=== PATIENT | female | born 1985 | race Caucasian/White ===

== ENCOUNTER → 2018-06-06 | Outpatient (CLI) | payer OTHER | END | disposition home or self-care (01) | LOC: C.LABSPEC 17:33 | PROVIDERS: ATTEND Obstetrics & Gynecology | DX: Z34.01 Encounter for supervision of normal first pregnancy, first trimester (principal); Z3A.00 Weeks of gestation of pregnancy not specified ==

== ENCOUNTER → 2018-06-08 | Outpatient (CLI) | payer OTHER ==
[2018-06-08 14:50] LABS: HEMATOCRIT 37.6 % (37-47); HEMOGLOBIN 12.7 g/dL (12.0-16.0); MEAN CORPUSCULAR HEMOGLOBIN 30.8 pg (25-34); MEAN CORPUSCULAR HGB CONC 33.8 g/dl (32-36); MEAN PLATELET VOLUME 10.1 fL (7.4-10.4); PLATELET COUNT 164 K/uL (130-400); RED CELL DISTRIBUTION WIDTH CV 13.2 % (11.5-14.5); RED CELL DISTRIBUTION WIDTH SD 43.9 fL (36.4-46.3); WHITE BLOOD COUNT 6.67 K/uL (4.8-10.8)
== END | disposition home or self-care (01) ==
LOC: C.LAB1850 14:04
PROVIDERS: ATTEND Obstetrics & Gynecology
DX: O46.90 Antepartum hemorrhage, unspecified, unspecified trimester (principal); Z3A.00 Weeks of gestation of pregnancy not specified

== ENCOUNTER → 2018-06-15 | Outpatient (CLI) | payer OTHER | END | disposition home or self-care (01) | LOC: C.LAB1850 16:37 | PROVIDERS: ATTEND Obstetrics & Gynecology | DX: O03.9 Complete or unspecified spontaneous abortion without complication (principal); Z3A.00 Weeks of gestation of pregnancy not specified ==

== ENCOUNTER 2023-12-13 07:50 | Inpatient (IN) ==
[2023-12-13] MEDS ORDERED: LIDOCAINE 1% LOCAL 20 ML VIAL INFIL PRN (08:10)
--- NOTE | 2023-12-13 08:24 | Labor Progress Brief Note ---
Date of Service December 13, 2023 Subjective Balloon fell out at 11pm. No OB c/o. Assessment & Plan (1) Elderly multigravida, currently : Plan: Postdates IOL, will use pitocin, epidural on request. Admission and Anticipated Discharge Date Admission Date: December 13, 2023 Physical Exam Genitourinary: /-2 No ROM FHT Cat 1 [place] irregular / infrequent ctx Results & Data Vital Signs (Past 12 Hours) Vital Signs Pulse BP 12/13/23 07:59 78 96/61 L Coding Level of Care Code None Diagnoses Elderly multigravida, currently O09.529
[2023-12-13] MEDS: OXYTOCIN 30 UNITS/NSS 30 UNITS/500 ML BAG IV PRN (09:03)
[2023-12-13] MEDS: LACTATED RINGER'S 1,000 ML IV PRN (09:07)
[2023-12-13 09:51] LABS: Hematocrit (blood only) 36.9 % (37.0-47.0); Hemoglobin 12.3 g/dl (12.0-16.0); Mean Corpuscular Hemoglobin 33.2 pg (25.0-34.0); Mean Corpuscular Hgb Conc 33.3 g/dL (32.0-36.0); Mean Corpuscular Volume 99.7 fL (80.0-100.0); Mean Platelet Volume 9.9 fL (9.4-12.4); Platelet Count 146 K/uL (130-400); RDW Coefficient of Variation 14.1 % (11.5-14.5); RDW Standard Deviation 51.8 fL (36.4-46.3); White Blood Count 7.72 K/ul (4.8-10.8)
--- NOTE | 2023-12-13 13:47 | Labor Progress Brief Note ---
Date of Service December 13, 2023 Subjective Reason For Note: Routine Evaluation Assessment & Plan (1) resulting from in vitro fertilization: Plan: Carey is a 38-year-old G3, P0 at 40 weeks 5 days gestational age presents for induction of labor 1. Fetus: Category 1 tracing 2. Labor: Continue Pitocin per regular protocol. Artificial rupture membranes for clear fluid. Progressing well 3. GBS negative 4. Vitals within normal limit Trimester: third trimester Qualified Code(s): O09.813 - Supervision of resulting from assisted reproductive technology, third trimester (2) Elderly multigravida, currently : (3) Encounter for induction of labor: Admission and Anticipated Discharge Date Admission Date: December 13, 2023 Physical Exam Genitourinary: Manual OB Exam: + cervical dilation (4.5), + cervical effacement 80%, + station -2 and + amniotic fluid (AROM) clear OB Exam Monitor Tracing: + external FHT monitor used, + external uterine monitor used, + category I and + normal FHT variability; no early decelerations present, no late decelerations present and no variable decelerations Results & Data Vital Signs (Past 12 Hours) Vital Signs Temp Pulse Resp BP 12/13/23 12:49 65 104/65 12/13/23 12:00 20 12/13/23 12:00 20 12/13/23 11:30 16 12/13/23 11:30 36.7 C 16 12/13/23 11:11 70 104/61 12/13/23 10:13 64 102/58 L 12/13/23 09:19 79 111/66 12/13/23 08:31 36.6 C 78 16 96/61 L 12/13/23 08:05 16 12/13/23 08:05 36.6 C 16 12/13/23 07:59 78 96/61 L Coding Level of Care Code None Diagnoses resulting from in vitro fertilization in third trimester O09.813 Trimester: third trimester Elderly multigravida, currently O09.529 Encounter for induction of labor Z34.90
[2023-12-13] MEDS ORDERED: ePHEDrine sulfate 50 MG/ML AMP IV PRN (15:41)
[2023-12-13] MEDS ORDERED: LIDOCAINE 2% MPF LOCAL 5 ML VIAL EPI PRN (15:41)
[2023-12-13] MEDS ORDERED: ONDANSETRON INJ 2 MG/ML 2 ML VIAL IV PRN (15:41)
[2023-12-13] MEDS ORDERED: ROPIVACAINE 0.5% PF 5 MG/ML 20 ML VIAL EPI PRN (15:41)
[2023-12-13] MEDS ORDERED: diphenhydrAMINE 50 MG/ML VIAL IV PRN (15:41)
[2023-12-13] MEDS ORDERED: NALBUPHINE HCL 5 MG in SYRINGE 0 ML IV PRN (15:41)
[2023-12-13] MEDS ORDERED: fentaNYL citrate PF 100 MCG/2 ML VIAL EPI PRN (15:41)
[2023-12-13] MEDS ORDERED: NALOXONE HCL 1 MG in SODIUM CHLORIDE 0.9% 1,000 ML IV PRN (15:41)
[2023-12-13] MEDS ORDERED: NALOXONE HCL 0.4 MG/1 ML VIAL/CARP IV PRN (15:41)
[2023-12-13] MEDS ORDERED: BUPIVACAINE 0.25% PF 30 ML VIAL EPI PRN (15:41)
[2023-12-13] MEDS ORDERED: SODIUM CHLORIDE 0.9% PF INJ 10 ML VIAL EPI PRN (15:41)
[2023-12-13] MEDS: fentANYL 2 MCG/ML BUPIVacaine 0.125%-NSS 100ML BAG ONE (16:05)
[2023-12-13] MEDS: fentaNYL citrate PF 100 MCG/2 ML VIAL ONE (16:10)
[2023-12-13] MEDS: LIDOCAINE 2%/EPINEPHRINE 1:200,000 20 ML PF ONE (16:10)
[2023-12-13] MEDS: BUPIVACAINE 0.25% PF 30 ML VIAL ONE (16:10)
--- NOTE | 2023-12-13 16:15 | Anesthesiology Consultation ---
Date of Service December 13, 2023 Assessment & Plan ASA ASA2 Proposed Anesthesia Anesthesia Type: Labor Epidural Risk / Benefits Reviewed With: PT / POA / Parent / Guardian, Accepts Plan and Informed Consent Obtained History Height/Weight Height: 5 ft 2.2 in Weight: 70.76 kg Allergies Allergy/AdvReac Type Severity Reaction Status Date / Time No Known Drug Allergies Allergy Unknown Verified 12/12/23 19:30 Medications Home Medications Medication Instructions Recorded Confirmed Last Taken hvffazpa-[id number]-[id number] 1 tab PO DAILY 06/23/23 12/13/23 12/12/23 20:00 Active Medications Generic Name Dose Route Start Last Admin Trade Name Freq PRN Reason Stop Dose Admin Lactated Ringer's 1,000 mls @ 125 mls/hr 12/13/23 08:10 12/13/23 15:27 Lr IV 12/15/23 08:09 999 mls/hr .Q8H PRN Administration L&D Protocol Protocol Oxytocin 30 units in 500 mls @ 16 mls/hr 12/13/23 08:51 12/13/23 13:15 Pitocin 30 Units/Nss IV 12/15/23 08:50 0.96 units/hr .Q24H PRN 16 mls/hr Labor Induction/Augmentation Titration Protocol 0.96 UNITS/HR Past Medical History Medical History Spontaneous 2017 and 2018 Unintentional weight loss pt states she has lost 26lbs since December 2019 Abdominal bloating Migraine Breast cyst Exercise / Class Metabolic Activity II 4-5 Yardwork/Stairs/Walk up hill Past Family History Family History Grandmother (Maternal) Multiple gestation Diabetes Father Hypertension Aunt Breast cancer Family hx colonic polyps Lung cancer Mother ALS (amyotrophic lateral sclerosis) Depression Other Hepatitis No family history of adverse response to anesthesia Denies family history of Ovarian cancer Prostate cancer Myocardial infarction Colorectal cancer Past Surgical History Surgical History History of colonoscopy History of open reduction and internal fixation (ORIF) procedure right ankle--hardware removed S/P wisdom tooth extraction Past Anesthesia History No Hx of Anesthesia Complications and No Family Hx of Anesthesia Complications History of PONV No Hx of PONV and No Hx of Motion Sickness Social History Smoking Status: Never smoker Do You Dip or Chew Tobacco: No Hx Alcohol Use: No Hx Substance Use: No substance use type: does not use Review of Systems denies fever/cough/ colds/ chest pain/ SOB/ IVÁN denies IVÁN Physical Exam Vital Signs Last Vital Signs Temp 36.7 C 12/13/23 11:30 Pulse 66 12/13/23 16:12 Resp 20 12/13/23 12:00 BP 121/60 12/13/23 16:12 Pulse Ox 99 12/13/23 16:09 ENMT Mouth: no TMJ abnormality and no dentition abnormality Thyromental Distance: > or= 3.5 Finger Breadths Mallampati Class: II Neck neck extension not limited Respiratory normal respiratory effort; no respiratory distress Auscultation: lungs clear to auscultation bilaterally Cardiovascular Rate/Rhythm: regular rate and regular rhythm Neurologic moves all extremities Psychiatric Orientation: alert and oriented x 3 Testing Laboratory Results 12/13/23 09:14
[2023-12-13] MEDS: SODIUM CHLORIDE 0.9% PF INJ 10 ML VIAL EPI STA (16:18)
[2023-12-13] MEDS: ePHEDrine sulfate 50 MG/ML AMP ONE (16:40)
[2023-12-13] MEDS: SODIUM CHLORIDE 0.9% PF INJ 10 ML VIAL ONE (16:40)
--- NOTE | 2023-12-13 19:59 | Labor Progress Brief Note ---
Date of Service December 13, 2023 Subjective Reason For Note: Routine Evaluation Assessment & Plan (1) resulting from in vitro fertilization: Plan: Carey is a 38-year-old G3, P0 at 40 weeks 5 days gestational age presents for induction of labor 1. Fetus: Category 1 tracing 2. Labor: Progressing adequately. Continue Pitocin per regular protocol. Artificial rupture membranes for clear fluid. 3. GBS negative 4. Vitals within normal limit Trimester: third trimester Qualified Code(s): O09.813 - Superv ision of resulting from assisted reproductive technology, third trimester (2) Elderly multigravida, currently : (3) Encounter for induction of labor: Admission and Anticipated Discharge Date Admission Date: December 13, 2023 Physical Exam Genitourinary: Manual OB Exam: + cervical dilation 6 cm, + cervical effacement 90%, + station -1 and + amniotic fluid clear OB Exam Monitor Tracing: + external FHT monitor used, + external uterine monitor used, + category I and + normal FHT variability; no early decelerations present, no late decelerations present and no variable decelerations Results & Data Vital Signs (Past 12 Hours) Vital Signs Temp Pulse Resp BP Pulse Ox 12/13/23 19:54 73 100 12/13/23 19:49 71 100 12/13/23 19:48 81 117/72 12/13/23 19:44 69 100 12/13/23 19:39 73 100 12/13/23 19:36 69 92 12/13/23 19:34 69 100 12/13/23 19:29 75 100 12/13/23 19:25 72 90 12/13/23 19:24 63 100 12/13/23 19:19 64 100 12/13/23 19:16 36.4 C L 63 18 104/51 L 12/13/23 19:14 67 100 12/13/23 19:09 57 L 100 12/13/23 19:04 69 96 12/13/23 18:59 75 100 12/13/23 18:54 100 12/13/23 18:54 70 12/13/23 18:54 71 91 12/13/23 18:49 66 98 12/13/23 18:44 64 100 12/13/23 18:40 57 L 92 12/13/23 18:39 54 L 100 12/13/23 18:34 72 99 12/13/23 18:29 67 100 12/13/23 18:24 60 100 12/13/23 18:19 100 12/13/23 18:19 61 12/13/23 18:19 56 L 96/57 L 12/13/23 18:14 60 100 12/13/23 18:09 61 100 12/13/23 18:06 57 L 102/62 12/13/23 18:04 69 100 12/13/23 17:59 75 100 12/13/23 17:54 61 100 12/13/23 17:49 83 100 12/13/23 17:48 86 89/57 L 12/13/23 17:44 60 98 12/13/23 17:39 61 99 12/13/23 17:34 63 89/58 L 99 12/13/23 17:29 74 99 12/13/23 17:24 57 L 98 12/13/23 17:19 98 12/13/23 17:19 63 12/13/23 17:19 60 92/56 L 12/13/23 17:14 60 100 12/13/23 17:10 16 12/13/23 17:10 36.4 C L 16 12/13/23 17:09 65 99 12/13/23 17:04 99 12/13/23 17:04 59 L 12/13/23 17:04 59 L 108/61 12/13/23 16:59 59 L 99 12/13/23 16:54 60 98 12/13/23 16:49 99 12/13/23 16:49 64 12/13/23 16:49 63 115/77 12/13/23 16:44 64 99 12/13/23 16:39 66 99 12/13/23 16:34 95 12/13/23 16:34 67 12/13/23 16:34 64 107/64 12/13/23 16:29 66 99 12/13/23 16:24 68 98 12/13/23 16:19 76 98 12/13/23 16:17 67 131/72 12/13/23 16:14 69 115/56 L 98 12/13/23 16:12 66 121/60 12/13/23 16:10 65 125/63 12/13/23 16:09 67 99 12/13/23 16:08 61 124/61 12/13/23 16:06 60 123/59 L 12/13/23 16:04 100 12/13/23 16:04 64 12/13/23 16:04 62 132/68 12/13/23 16:00 78 112/73 12/13/23 15:59 68 115/71 100 12/13/23 15:55 72 125/76 12/13/23 15:54 81 100 12/13/23 15:49 89 95 12/13/23 15:44 77 98 12/13/23 15:39 72 97 12/13/23 15:38 67 129/62 12/13/23 15:23 62 115/74 12/13/23 12:49 65 104/65 12/13/23 12:00 20 12/13/23 12:00 20 12/13/23 11:30 16 12/13/23 11:30 36.7 C 16 12/13/23 11:11 70 104/61 12/13/23 10:13 64 102/58 L 12/13/23 09:19 79 111/66 12/13/23 08:31 36.6 C 78 16 96/61 L 12/13/23 08:05 16 12/13/23 08:05 36.6 C 16 12/13/23 07:59 78 96/61 L Coding Level of Care Code None Diagnoses resulting from in vitro fertilization in third trimester O09.813 Trimester: third trimester Elderly multigravida, currently O09.529 Encounter for induction of labor Z34.90
[2023-12-13] MEDS: fentANYL 2 MCG/ML BUPIVacaine 0.125%-NSS 100ML BAG EPI PRN (22:38)
[2023-12-14] MEDS: OXYTOCIN 30 UNITS/NSS 30 UNITS/500 ML BAG IV PRN (04:41)
[2023-12-14] MEDS ORDERED: ACETAMINOPHEN 325 MG TAB PO PRN (04:53)
[2023-12-14] MEDS ORDERED: OXYTOCIN 30 UNITS/NSS 30 UNITS/500 ML BAG IV PRN (04:53)
[2023-12-14] MEDS ORDERED: HYDROCORTISONE ACETATE 25 MG SUPP PR PRN (04:53)
--- NOTE | 2023-12-14 05:00 | Anesthesia Procedure Note ---
Date of Service December 14, 2023 Anesthesia Post Epidural Note Vital Signs Vital Signs: Temp Pulse Resp BP Pulse Ox 36.8 C 102 H 18 113/63 92 12/14/23 03:25 12/14/23 04:48 12/14/23 03:25 12/14/23 04:48 12/14/23 04:19 Notes Mental Status: alert / awake / arousable and participated in evaluation Nausea / Vomiting: adequately controlled Pain: adequately controlled Airway Patency, RR, SpO2: stable & adequate BP & HR: stable & adequate Hydration State: stable & adequate Neuraxial Anesthesia: was administered and sensory block resolved Anesthetic Complications: no major complications apparent and Pt Satisfied with anesthetic care Epidural: Removed without complications and With tip intact
[2023-12-14] MEDS: BENZOCAINE 20% SPRY 85 APPLN/85 GM CAN EXT PRN (05:22)
[2023-12-14] MEDS: IBUPROFEN 600 MG TAB PO PRN (05:22)
[2023-12-14] MEDS: DIPHTHER/TETAN/PERTUS Vaccine (Tdap, Adol/Adult) 0.5mL IM ONE (05:22)
--- NOTE | 2023-12-14 08:04 | Delivery Summary ---
Vaginal Delivery Summary Date of Service December 14, 2023 Vaginal Delivery Summary and 2nd Degree LAC Patient progressed to 10 cm dilated 100% effaced +2 station pushed over intact perineum with epidural anesthesia and delivered a viable with weight and Apgars pending. Head of the delivered in direct OA position and body and shoulders quickly followed. was noted to be vigorous soon after delivery and a 3 minute delayed cord clamping was initiated. Cord was then double clamped and cut. remained on maternal abdomen. Cord blood obtained. Attention was turned to deliver the placenta which delivered intact three-vessel cord gentle cord traction. On inspection of perineum vagina and cervix there is noted to be a second-degree perineal laceration which was repaired with 3-0 Vicryl in the traditional crown stitch. There is also noted to be a periurethral laceration laceration which was repaired with 3-0 Vicryl continuous running stitch. Needle sponge and instrument counts were correct at the completion of the case. Estimated blood loss of 300 mL noted. No complications with delivery. [facility] Vaginal Delivery Charge Delivery Type Details: and 2nd Degree LAC
[2023-12-14] MEDS: DOCUSATE SODIUM 100 MG CAP PO SCH (08:43)
[2023-12-14] MEDS: PRENATAL VITAMIN 1 TAB PO SCH (08:43)
[2023-12-14] MEDS: FERROUS SULFATE 325 MG TAB PO SCH (08:43)
--- NOTE | 2023-12-15 06:53 | Obstetrical Progress Note ---
Date of Service December 15, 2023 Assessment & Plan (1) (normal spontaneous vaginal delivery): Plan: Doing well encourage ambulation anticipate dc tomorrow Admission and Anticipated Discharge Date Admission Date: December 13, 2023 Supervising Physician Co-Signing Physician Notes Resident Physician Supervision Note: I was present with [Name of resident] during the history and exam. I discussed the case with the resident and agree with the findings and plan as documented in the note. Any exceptions or clarifications are listed here: [None] Documented By: Jennifer Kwan MD, FACOG Subjective 38 yo post day1 s/p Ambulation: ambulating normally Voiding: no voiding problems Passing Gas:: Yes Diet Tolerance:: regular diet Lochia:: Small Feeding Type:: bottle feeding Current Pain Level: minimal Resting comfortably this AM in NAD. Denies HUIZAR, CP, SOB, N/V/D, LE pain/swelling. Review of Systems Review of Systems: reviewed, per HPI Physical Exam Physical Exam: General: patient resting comfortably, NAD, non-toxic in appearance, answers questions appropriately. Skin: warm, dry, intact HEENT: NC/AT, anicteric sclera, conjunctiva without injection, moist mucus membranes. Heart: +S1/S2, regular, no m/r/g Lungs: equal air entry bilaterally, no rales/rhonchi/wheezes Abd: +BS, soft, NT/ND, uterine fundus firm at umbilicus Ext: warm, no clubbing/cyanosis or edema, Yin's neg. Neuro: nonfocal, speech intact, no facial droop, moving all extremities on command. Results & Data Vital Signs (Past 12 Hours) Vital Signs Temp Pulse Pulse Resp BP Pulse Ox O2 Del Method 12/15/23 04:30 36.5 C 69 18 105/65 12/14/23 23:50 36.5 C 80 18 100/64 12/14/23 19:30 36.6 C 83 20 118/75 100 Room Air Resident Activity Tracking Resident Involvement: Resident Care Provided Care Provided: Adult Hospital Medicine
[2023-12-15] MEDS: fentaNYL citrate PF 100 MCG/2 ML VIAL EPI STA (07:58)
[2023-12-15] MEDS: LIDOCAINE 2%/EPINEPHRINE 1:200,000 20 ML PF EPI STA (07:58)
[2023-12-15] MEDS: BUPIVACAINE 0.25% PF 30 ML VIAL EPI STA (07:58)
[2023-12-15] MEDS: bisacodyL 5 MG TABEC PO SCH (21:13)
[2023-12-16] MEDS ORDERED: bisacodyL 10 MG SUPP PR PRN
--- NOTE | 2023-12-16 06:11 | Obstetrical Progress Note ---
Date of Service December 16, 2023 Assessment & Plan (1) (normal spontaneous vaginal delivery): Plan: Doing well encourage ambulation dc today Admission and Anticipated Discharge Date Admission Date: December 13, 2023 Supervising Physician Co-Signing Physician Notes Resident Physician Supervision Note: I interviewed and examined the patient. Discussed with Dr. Fleming and agree with findings and plan as documented in the note. Any exceptions or clarifications are listed here: PPD#2 doing well. DC home. Instructions reviewed. Followup office 6w. Documented By: Claudia Camacho DO Subjective 38 yo post day 2 s/p Ambulation: ambulating normally Voiding: no voiding problems Passing Gas:: Yes Diet Tolerance:: regular diet Lochia:: Small Feeding Type:: bottle feeding Current Pain Level: minimal Resting comfortably this AM in NAD. Denies HUIZAR, CP, SOB, N/V/D, LE pain/swelling. Review of Systems Review of Systems: reviewed, per HPI Physical Exam Physical Exam: General: patient resting comfortably, NAD, non-toxic in appearance, answers questions appropriately. Skin: warm, dry, intact HEENT: NC/AT, anicteric sclera, conjunctiva without injection, moist mucus membranes. Heart: +S1/S2, regular, no m/r/g Lungs: equal air entry bilaterally, no rales/rhonchi/wheezes Abd: +BS, soft, NT/ND, uterine fundus firm at umbilicus Ext: warm, no clubbing/cyanosis or edema, Yin's neg. Neuro: nonfocal, speech intact, no facial droop, moving all extremities on command. Results & Data Vital Signs (Past 12 Hours) Vital Signs Temp Pulse Resp BP Pulse Ox O2 Del Method 12/16/23 00:15 36.8 C 85 18 107/70 98 Room Air 12/15/23 19:30 36.5 C 73 18 107/67 96 Room Air Resident Activity Tracking Resident Involvement: Resident Care Provided Care Provided: Adult Hospital Medicine
== END 2023-12-16 14:40 | disposition home or self-care (01) | DRG 807 ==
LOC: 4S1 07:50 → 4E2 12-14 08:55